=== PATIENT | female | born 2000 | race Caucasian/White ===

== ENCOUNTER → 2024-01-31 11:31 | Outpatient (CLI) | payer OTHER, SELFPAY ==
[2024-01-31 20:53] LABS: INR 1.2 (0.9-1.3); Prothrombin Time 13.4 SECONDS (9.4-12.5)
[2024-01-31 20:55] LABS: PTT Partial Thromboplastin Tim 42 SECONDS (25.1-36.5)
[2024-01-31 21:16] LABS: Add Manual Diff / Slide Review NO; Basophils Absolute Auto 100 /uL (0-100); Basophils Percent Auto 1.3 % (0-2); Eosinophils Absolute Auto 200 /uL (0-450); Eosinophils Percent Auto 2.8 % (2-4); Hematocrit 43.5 % (36-46); Hemoglobin 14.7 g/dL (12.0-16.0); Lymphocytes Absolute Auto 1900 /uL (1100-4500); Lymphocytes Percent Auto 33.3 % (25-40); Mean Corpuscular HGB Conc 33.8 % (30-36); Mean Corpuscular Hemoglobin 31.6 PG (26-34); Mean Corpuscular Volume 93.5 fL (80-100); Monocytes Absolute Auto 200 /uL (0-900); Monocytes Percent Auto 4.4 % (3-14); Neutrophils Absolute Auto 3300 /uL (1500-7000); Neutrophils Percent Auto 58.2 % (50-75); Platelet Count 231 X10^3/uL (150-400); Red Blood Cell Count 4.66 X10^6/uL (4.0-5.2); Red Cell Distribution Width 12.7 % (11.6-14.8); White Blood Cell Count 5.7 X10^3/uL (4.5-11.0)
[2024-01-31 22:33] LABS: Alanine Aminotransferase 15 IU/L (<35); Albumin 4.9 g/dL (3.5-5.0); Albumin Globulin Ratio 1.4 (1.0-2.8); Alkaline Phosphatase 80 U/L (38-126); Aspartate Aminotransferase 71 IU/L (14-36); BUN Creatinine Ratio 12.8 (6-22); Bilirubin Total 0.5 mg/dL (0.2-1.3); Blood Urea Nitrogen 10 mg/dL (7-17); Calcium 9.5 mg/dL (8.4-10.2); Carbon Dioxide 25 mmol/L (22-32); Chloride 105 mmol/L (98-107); Estimated Glomerular Filt Rate > 60 mL/min (>60); Globulin 3.6 g/dL (1.7-4.1); Glucose 89 mg/dL (70-100); HEMOLYSIS < 15 (0-50); Potassium 3.5 mmol/L (3.4-5.1); Sodium 140 mmol/L (137-145); Total Protein 8.5 g/dL (6.3-8.2)
[2024-01-31 23:03] LABS: TSH w/ Reflex to FT4 1.93 uIU/mL (0.47-4.68)
[2024-01-31 23:27] LABS: Vitamin B12 473 pg/mL (239-931)
[2024-02-04 18:11] LABS: von Willebrand Factor Activity 48 % (50-200)
== END ==
PROVIDERS: PCP Physician Assistant; Visit Provider Physician Assistant
DX: F41.9 Anxiety disorder, unspecified (principal); R23.3 Spontaneous ecchymoses; R53.83 Other fatigue
CPT/HCPCS: 80053; 82607; 84443; 85025; 85245; 85610; 85730

== ENCOUNTER → 2024-02-06 16:37 | Outpatient (CLI) | payer OTHER, SELFPAY ==
--- NOTE | 2024-02-06 16:38 | DI.US.S_ITS ---
PROCEDURE: US ABDOMEN LIMITED INDICATIONS: Elevated liver enzyme. clotting abnormality TECHNIQUE: Real-time scanning was performed of the abdominal and retroperitoneal organs, with image documentation. COMPARISON: None. FINDINGS: Liver: Liver is normal in size and homogeneous in echotexture. Gallbladder: No gallstones. No wall thickening. No pericholecystic edema. Negative sonographic Hart's sign. Biliary ducts: Intrahepatic bile ducts are non-dilated. Extrahepatic bile duct caliber measures 2 mm. Normal is 6-7 mm or less in diameter, or 10 mm or less post-cholecystectomy. Pancreas: Visualized portions of the pancreas are sonographically normal. Miscellaneous: No free abdominal fluid. Visualized portion of the right lower quadrant demonstrates no inflammatory change. IMPRESSION: Unremarkable exam. Dictated by: Sylvie Burton M.D. on 02/06/2024 at 17:57 Approved by: Sylvie Burton M.D. on 02/06/2024 at 17:57
== END ==
PROVIDERS: PCP Physician Assistant; Referring Provider Physician Assistant; Visit Provider Physician Assistant
DX: R74.8 Abnormal levels of other serum enzymes (principal); R23.3 Spontaneous ecchymoses; R79.1 Abnormal coagulation profile
CPT/HCPCS: 76705

== ENCOUNTER → 2024-03-07 08:49 | Outpatient (CLI) | payer BC, SELFPAY ==
[2024-03-07 18:56] LABS: HEMOLYSIS < 15 (0-50); Iron 90 ug/dL (37-170)
[2024-03-07 19:03] LABS: Alanine Aminotransferase 16 IU/L (<35); Albumin 4.6 g/dL (3.5-5.0); Albumin Globulin Ratio 1.6 (1.0-2.8); Alkaline Phosphatase 77 U/L (38-126); Aspartate Aminotransferase 27 IU/L (14-36); BUN Creatinine Ratio 19.4 (6-22); Bilirubin Total 0.6 mg/dL (0.2-1.3); Bilirubin Unconjugated 0.2 mg/dL (0.0-1.1); Blood Urea Nitrogen 14 mg/dL (7-17); Calcium 9.4 mg/dL (8.4-10.2); Carbon Dioxide 24 mmol/L (22-32); Chloride 102 mmol/L (98-107); Estimated Glomerular Filt Rate > 60 mL/min (>60); Globulin 2.8 g/dL (1.7-4.1); Glucose 93 mg/dL (70-100); HEMOLYSIS < 15 (0-50); Potassium 3.7 mmol/L (3.4-5.1); Sodium 137 mmol/L (137-145); Total Protein 7.4 g/dL (6.3-8.2)
[2024-03-07 19:09] LABS: Percent Iron Saturation 25 % (15-50); Total Iron Binding Capacity 366 ug/dL (265-497); Transferrin 290 mg/dL (206-381)
[2024-03-07 19:17] LABS: Add Manual Diff / Slide Review NO; Basophils Absolute Auto 0 /uL (0-100); Basophils Percent Auto 0.6 % (0-2); Eosinophils Absolute Auto 100 /uL (0-450); Eosinophils Percent Auto 1.9 % (2-4); Hematocrit 42.2 % (36-46); Lymphocytes Absolute Auto 2000 /uL (1100-4500); Lymphocytes Percent Auto 32.8 % (25-40); Mean Corpuscular HGB Conc 33.1 % (30-36); Mean Corpuscular Hemoglobin 31.3 PG (26-34); Mean Corpuscular Volume 94.4 fL (80-100); Monocytes Absolute Auto 400 /uL (0-900); Monocytes Percent Auto 6.4 % (3-14); Neutrophils Absolute Auto 3500 /uL (1500-7000); Neutrophils Percent Auto 58.3 % (50-75); Platelet Count 197 X10^3/uL (150-400); Red Blood Cell Count 4.46 X10^6/uL (4.0-5.2); Red Cell Distribution Width 12.4 % (11.6-14.8); White Blood Cell Count 5.9 X10^3/uL (4.5-11.0)
[2024-03-07 19:18] LABS: PTT Partial Thromboplastin Tim 42 SECONDS (25.1-36.5)
[2024-03-07 19:28] LABS: INR 1.1 (0.9-1.3); Prothrombin Time 12.7 SECONDS (9.4-12.5)
[2024-03-07 19:39] LABS: Ferritin 15 ng/mL (6-137)
[2024-03-07 19:48] LABS: Hep C Virus Ab w/Reflex Quant NEGATIVE s/c (NEGATIVE)
== END ==
PROVIDERS: PCP Physician Assistant; Visit Provider Physician Assistant
DX: R53.83 Other fatigue (principal); R79.1 Abnormal coagulation profile; Z80.6 Family history of leukemia; R74.8 Abnormal levels of other serum enzymes; Z11.59 Encounter for screening for other viral diseases; R00.2 Palpitations; T14.8XXA Other injury of unspecified body region, initial encounter; R23.3 Spontaneous ecchymoses
CPT/HCPCS: 80053; 80076; 82728; 83540; 83550; 85025; 85610; 85730; 86803